=== PATIENT | female | born 1960 | race Caucasian/White ===

== ENCOUNTER 2018-03-22 15:08 | Emergency (ER) | payer MEDICARE, MEDICAID ==
[2018-03-22] MEDS ORDERED: Acetaminophen 500 MG TAB ONE (15:32)
--- NOTE | 2018-03-22 16:27 | RAD ---
ONE VIEW PELVIS: 03/22/18 HISTORY: Right knee replacement three weeks ago. Growing pain. COMPARISON: 06/14/15. FINDINGS: Bony pelvis is intact. Stable hyperdensity projecting over the right iliac wing. Uncomplicated left h ip prosthesis. The visualized right hip is unremarkable. IMPRESSION: Unremarkable one view pelvis. POS: [facility]
--- NOTE | 2018-03-22 16:28 | RAD ---
FOUR VIEWS RIGHT KNEE: 03/22/18 HISTORY: Recent arthroplasty. Pain. COMPARISON: 05/04/15. FINDINGS: Small suprapatellar joint effusion is suspected. Joint spaces are preserved. No perihardware lucency. No fracture. IMPRESSION: Small suprapatellar joint effusion. POS: [facility]
--- NOTE | 2018-03-22 17:19 | ULT ---
RIGHT LOWER EXTREMITY VENOUS ULTRASOUND WITH DOPPLER: 03/22/18 HISTORY: Right leg pain since recent knee replacement. COMPARISON: None. TECHNIQUE: Banda scale, color flow, doppler imaging with spectral waveform analysis performed in the right lower extremity venous system. FINDINGS: There is compressibility, presence of flow and augmentation in the common femoral vein, femoral vein, and popliteal vein. There is flow in the greater saphenous vein, profunda vein, and posterior tibial vein. IMPRESSION: No evidence of thrombus in the right lower extremity deep venous system. POS: [facility]
== END 2018-03-22 16:58 | disposition home or self-care (01) ==
LOC: ERS 15:08
DX: M25.561 Pain in right knee (principal); M25.551 Pain in right hip; K21.9 Gastro-esophageal reflux disease without esophagitis; I10 Essential (primary) hypertension; F31.9 Bipolar disorder, unspecified; F17.210 Nicotine dependence, cigarettes, uncomplicated; Z79.84 Long term (current) use of oral hypoglycemic drugs; Z79.899 Other long term (current) drug therapy
CPT/HCPCS: 72170

== ENCOUNTER 2018-06-05 12:20 | Outpatient (CLI) | payer MEDICARE, OTHER | END 2018-06-05 12:21 | disposition home or self-care (01) | LOC: BICMAMMO 12:20 | PROVIDERS: ATTEND Family Medicine | DX: Z12.31 Encounter for screening mammogram for malignant neoplasm of breast (principal); N64.89 Other specified disorders of breast; Z80.3 Family history of malignant neoplasm of breast | CPT/HCPCS: 77063; 77067 ==

== ENCOUNTER 2018-07-11 14:01 | Outpatient (CLI) | payer MEDICARE, OTHER ==
--- NOTE | 2018-07-11 15:35 | MMO ---
Left Breast MAMMO Unilat Diag DDI LT+EMILY. CLINICAL HISTORY: Patient is 58 years old and is seen for diagnostic exam. The patient has the following family history of breast cancer: maternal aunt and cousin gender unknown. The patient has no personal history of cancer. The patient has a history of right Excisional Biopsy in July, - benign. VIEWS: The views performed were: left craniocaudal spot compression with tomosynthesis and left mediolateral with tomosynthesis. FILMS COMPARED: The present examination has been compared to prior imaging studies performed at 09/08/2006, 11/15/2007, 11/17/2008, 03/11/2009, 07/16/2010, 07/23/2010, 07/29/2011, 10/10/2013 and 06/05/2018, and at [facility] on 03/30/2015. MAMMOGRAM FINDINGS: There are scattered fibroglandular densities. There is a focal asymmetry seen in the central region of the left breast. Tomosynthesis and spot compression images show the abnormality to represent superimpostion of normal breast parenchyma. There are no suspicious masses, calcifications or areas of architectural distortion. IMPRESSION: FOCAL ASYMMETRY IN THE LEFT BREAST IS BENIGN. A ROUTINE FOLLOW-UP MAMMOGRAM IN 1 YEAR IS RECOMMENDED. THE RESULTS OF THIS EXAM WERE SENT TO THE PATIENT. ACR BI-RADS Category 2 - Benign finding MAMMOGRAPHY NOTE: 1. A negative mammogram report should not delay a biopsy if a dominant of clinically suspicious mass is present. 2. Approximately 10% to 15% of breast cancers are not detected by mammography. 3. Adenosis and dense breasts may obscure an underlying neoplasm.
== END 2018-07-11 14:02 | disposition home or self-care (01) ==
LOC: BICMAMMO 14:01
PROVIDERS: ATTEND Family Medicine
DX: R92.2 Inconclusive mammogram (principal); N64.89 Other specified disorders of breast; Z80.3 Family history of malignant neoplasm of breast
CPT/HCPCS: 77065; G0279

== ENCOUNTER 2018-09-17 18:43 | Emergency (ER) | payer MEDICARE, OTHER ==
[2018-09-17] MEDS ORDERED: Cyclobenzaprine 10 MG TAB ONE (20:55)
== END 2018-09-17 20:58 | disposition home or self-care (01) ==
LOC: ERS 18:43
DX: M25.512 Pain in left shoulder (principal); K21.9 Gastro-esophageal reflux disease without esophagitis; I10 Essential (primary) hypertension; F31.9 Bipolar disorder, unspecified; E78.00 Pure hypercholesterolemia, unspecified; F17.210 Nicotine dependence, cigarettes, uncomplicated; Z79.891 Long term (current) use of opiate analgesic; Z79.899 Other long term (current) drug therapy; Z79.84 Long term (current) use of oral hypoglycemic drugs
CPT/HCPCS: 99283

== ENCOUNTER 2018-11-08 14:01 | Emergency (ER) | payer MEDICARE, OTHER ==
--- NOTE | 2018-11-08 16:38 | ULT ---
Venous duplex sonogram left lower extremity HISTORY: Left leg pain and edema. FINDINGS: The left common femoral vein and greater saphenous junction were evaluated along with the f emoral, deep femoral, popliteal, and posterior tibial veins. There is good color and spectral Doppler flow, compression, and augmentation. IMPRESSION: No sonographic evidence of DVT within the left lower extremity.
[2018-11-08] MEDS ORDERED: Acetaminophen/Codeine 30-300mg Tablet ONE (17:04)
== END 2018-11-08 17:12 | disposition home or self-care (01) ==
LOC: ERS 14:01
DX: M79.662 Pain in left lower leg (principal); I10 Essential (primary) hypertension; E78.00 Pure hypercholesterolemia, unspecified; K21.9 Gastro-esophageal reflux disease without esophagitis; F31.9 Bipolar disorder, unspecified; F17.210 Nicotine dependence, cigarettes, uncomplicated

== ENCOUNTER 2018-11-21 13:52 | Emergency (ER) | payer MEDICARE, OTHER ==
[2018-11-21] MEDS ORDERED: Ibuprofen 200 MG TAB ONE (14:28)
--- NOTE | 2018-11-21 15:18 | ULT ---
LEFT LOWER EXTREMITY VENOUS DUPLEX ULTRASOUND INCLUDING COLOR AND SPECTRAL DOPPLER IMAGING: HISTORY: Lower extremity pain and edema. COMPARISON: 11/08/2018. FINDINGS: Exam performed from groin to ankle including visualized greater saphenous, common femoral, superficia l femoral, profunda femoral, popliteal, trifurcation, and posterior tibial vein regions. Phasic flow noted at all levels with normal compressibility and normal augmentation. The patient did have some visible varicose veins, but no evidence for focal superficial thrombophlebitis was demonstrated. IMPRESSION: Unremarkable left lower extremity venous duplex ultrasound. No evidenc3 for deep vein thrombosis. POS: [facility]
== END 2018-11-21 15:15 | disposition home or self-care (01) ==
LOC: ERS 13:52
DX: G62.9 Polyneuropathy, unspecified (principal); K21.9 Gastro-esophageal reflux disease without esophagitis; F31.9 Bipolar disorder, unspecified; I10 Essential (primary) hypertension; E78.00 Pure hypercholesterolemia, unspecified; F17.210 Nicotine dependence, cigarettes, uncomplicated

== ENCOUNTER 2019-01-10 10:06 | Observation (INO) | payer MEDICARE, OTHER ==
[2019-01-10 10:40] LABS: #Basophils 0.1 thou/uL (0.0-0.2); #Eosinphils 0.1 thou/uL (0.0-0.7); #Lymphocytes 2.5 thou/uL (1.20-3.40); #Monocytes 0.4 thou/uL (0.11-0.59); #Neutrophils 4.2 thou/uL (1.40-6.50); %Basophils 0.9 % (0.0-1.0); %Eosinophils 1.3 % (0.0-10.0); %Lymphocytes 34.4 % (21.0-51.0); %Monocytes 5.7 % (0.0-10.0); %Neutrophils 57.8 % (42.0-75.0); Hemoglobin 13.9 g/dL (12.0-16.0); Mean Corpuscular HGB CONC 34.2 g/dL (32.0-36.0); Mean Corpuscular Hemoglobin 31.4 pg (27.0-31.0); Mean Corpuscular Volume 91.9 fL (78.0-98.0); Platelet Count 230 thou/uL (130-400); RBC Distribution Width 12.3 % (11.5-14.5); Red Blood Cell (RBC) Count 4.44 mill/uL (4.20-5.40); White Blood Cell (WBC) Count 7.2 thou/uL (4.8-10.8)
[2019-01-10 11:02] LABS: ALT (SGPT) 18 U/L (8-55); AST (SGOT) 25 U/L (5-34); Albumin 4.3 g/dL (3.5-5.0); Alkaline Phosphatase 65 U/L (40-150); Anion Gap 15 mmol/L (10-20); BUN (Urea Nitrogen) 9 mg/dL (9.8-20.1); Bilirubin, Total 0.4 mg/dL (0.2-1.2); CK (CPK) 93 U/L (29-168); Calc. Creatinine Clearance 0 mL/min (70-130); Calcium 9.7 mg/dL (7.8-10.44); Carbon Dioxide 21 mmol/L (22-29); Chloride 109 mmol/L (98-107); Estimated GFR-MDRD 75; Globulin 2.9 g/dL (2.4-3.5); Glucose 115 mg/dL (70-105); Potassium 4.4 mmol/L (3.5-5.1); Protein, Total 7.2 g/dL (6.0-8.3); Sodium 141 mmol/L (136-145)
[2019-01-10] MEDS ORDERED: Promethazine HCl 25 MG/ML VIAL ONE (11:02)
[2019-01-10] MEDS ORDERED: Aspirin Chewable 81 MG TAB ONE (11:02)
[2019-01-10] MEDS ORDERED: Nitroglycerin 0.4 MG TAB 1 EACH ONE (11:02)
--- NOTE | 2019-01-10 11:18 | RAD ---
PORTABLE CHEST: HISTORY: Chest pain. COMPARISON: 11/02/2016 study. FINDINGS: Heart size is enlarged. Mediastinal structures appear unremarkable. The lungs are clear of infiltra zohreh. There are no signs of failure. IMPRESSION: Cardiomegaly. POS: [facility]
[2019-01-10] MEDS ORDERED: Senokot S 8.6-50 MG TAB PO PRN (12:35)
[2019-01-10 13:12] LABS: Cardiac Risk 3.5 (Less than 4.5)
[2019-01-10 13:48] VITALS: BMI 29.0
--- NOTE | 2019-01-10 14:02 | HP ---
PRIMARY CARE PHYSICIAN: Santosh. CHIEF COMPLAINT: Chest pain. HISTORY OF PRESENT ILLNESS: Ms. Stanton is a 58-year-old female with complaints of midsternal chest pain x2 days. Reports pain radiates to right arm. Reports nausea. Denies vomiting. Denies diaphoresis. Denies shortness of breath. Denies any history of any cardiac disease in the past. Does report that she has been complaining about chest pain over the last several days. Reports that she went to her PCP and had an echocardiogram done two days ago, but has not gotten the results for them yet. Past medical history pertinent for hypertension, hyperlipidemia, and GERD. Does smoke. Also has a history of bipolar and depression. She was evaluated in the ER. First troponin was undetectable. EKG shows normal sinus rhythm, beats per minute 83, ST-T waves are normal. Lab values mostly unremarkable. Chloride 109, carbon dioxide 21, and BUN 9. The patient is complaining that she feels like her heart is moving out of her chest and then it has been hurting on and off for quite some time, but worse in the last 2 days. The patient admitted to the observation unit for further risk stratification. PAST MEDICAL HISTORY: Hypertension, hyperlipidemia, and GERD. PAST SURGICAL HISTORY: Multiple surgeries to the right knee, left hip replacement, three bladder surgeries, surgery to remove some ovarian cysts, cholecystectomy, hysterectomy, and six surgeries for bowel adhesions obstruction. PSYCH HISTORY: Positive for bipolar and depression. SOCIAL HISTORY: Lives at home with family. Denies any drug use or any alcohol use. She is a smoker, smokes half a pack a day. FAMILY HISTORY: Positive for coronary artery disease. REVIEW OF SYSTEMS: The patient reports chest pain, with chest pain radiation to the right arm. Reports palpitations. Reports to the ER, some shortness of breath. She denied that to me. Denies any abdominal pain or dysuria. She has chills, but no fever. All other systems are reviewed and are negative unless mentioned in the HPI. PHYSICAL EXAMINATION: VITAL SIGNS: Blood pressure 146/98, pulse is 71, respirations are 19, temperature is 98.1, and pO2 saturations are 98% on room air. CONSTITUTIONAL: The patient appears uncomfortable. She is alert and oriented to person, place and time. HEENT: Head is atraumatic and normocephalic. Eyes, pupils are equal, round, and reactive to light. Extraocular muscles are intact. ENT, mouth exam is normal. Mucous membranes are moist. NECK: Normal range of motion. No tenderness. RESPIRATORY: Chest movement is symmetrical. There is mild tenderness to the right anterior chest. Palpation of chest reproduces symptoms. Tenderness noted to palpation to right upper breast. CARDIOVASCULAR: Regular heart rate and rhythm. Heart sounds are normal. ABDOMEN: Nontender. Bowel sounds are heard. BACK: Normal range of motion. Normal inspection. No tenderness. EXTREMITIES: Upper extremity, normal inspection. Normal range of motion. Motor strength is normal. Sensation intact. Radial pulses are normal. Lower extremity, normal range of motion. Motor strength is normal. Sensation intact. Pedal pulses are normal. There is no edema. NEURO: The patient is alert and oriented to person, place, and time. Speech is normal. SKIN: Warm and dry. Normal in color. ALLERGIES: TYLENOL, STADOL, KEFLEX, CODEINE, BENADRYL, VISTARIL, TORADOL, ZOFRAN, COMPAZINE, DARVOCET, AND TRAMADOL. HOME MEDICATIONS: Per the ER, which will need to be verified; 1. Pravastatin 20 mg p.o. once a day. 2. Prilosec 40 mg p.o. b.i.d. 3. Wellbutrin 150 mg two tablets once a day. 4. Flexeril 10 mg p.o. q.8 hours p.r.n. 5. Motrin 600 mg one tablet q.6 to 8 hours as needed for pain. ASSESSMENT AND PLAN: 1. Chest pain. EKG within normal limits. First troponin undetectable. The pain is reproducible on palpation, which makes it less likely that is cardiac. However, the patient has multiple risk factors and has not had a stress test that she can remember, so we will go ahead and order this. 2. We will check lipids, TSH, urine, and urine drug screen. Aspirin has been given in the ER. We will continue daily. 3. History of hyperlipidemia. We will continue home medications. 4. Gastroesophageal reflux disease. We will continue home medications. 5. Bipolar depression. We will continue home medications. 6. Case discussed with Dr. Guillen, who agrees. 7. Deep venous thrombosis and gastrointestinal prophylaxis have been started. 8. Hospital course depending on clinical findings. Job ID: [id number]
[2019-01-10 14:32] LABS: Bilirubin Negative (Negative); Blood, Urine Negative (Negative); Clarity Clear (Clear); Glucose, Urine (Dipstick) Normal (Negative); Leukocyte Negative Leu/uL (Negative); Nitrite Negative (Negative); Protein, Urine (Dipstick) Negative (Neg-Trace); RBC/HPF 0-3 HPF (0-3); Squamous Epithelial 0-3 HPF (0-3); Urobilinogen Normal mg/dL (Less than 2); WBC/HPF 0-3 HPF (0-3)
[2019-01-10 14:34] LABS: Bacteria/HPF 1+ HPF (None Seen); Urine Culture Reflex No No
[2019-01-10 14:41] LABS: Amphetamine Not Detected (NotDetected); Barbiturates Screen Not Detected (NotDetected); Benzodiazepine Screen Not Detected (NotDetected); Cocaine Metabolite Screen Not Detected (NotDetected); Medtox Reader # READER 4; Methadone Not Detected (NotDetected); Methamphetamine Not Detected (NotDetected); Opiate Screen Not Detected (NotDetected); Oxycodone Screen Not Detected (NotDetected); Phencyclidine (PCP) Not Detected (NotDetected); THC/Cannabinoid Screen Not Detected (NotDetected); Tricyclic Screen Not Detected (NotDetected)
[2019-01-10 14:42] LABS: Medtox Control Line Valid? VALID (VALID)
[2019-01-10] MEDS: Nitroglycerin 0.4 MG TAB (25 Tab Bottle) SL PRN ×2 (16:58→17:09)
[2019-01-10 17:13] LABS: Troponin I Less than 0.010 ng/mL (< 0.028)
[2019-01-10] MEDS ORDERED: Acetaminophen 325 MG TAB PO PRN (17:48)
[2019-01-10] MEDS ORDERED: Melatonin 3 MG TAB PO PRN (19:37)
[2019-01-10] MEDS: Famotidine 20 MG TAB PO SCH (20:00)
[2019-01-10] MEDS: Ibuprofen 600 MG TAB PO PRN (20:00)
[2019-01-10] MEDS: Cyclobenzaprine 10 MG TAB PO PRN (20:01)
[2019-01-10 20:27] LABS: Troponin I Less than 0.010 ng/mL (< 0.028)
[2019-01-10] MEDS ORDERED: Pravastatin Sodium 20 MG TAB PO SCH (21:00)
[2019-01-11] MEDS: Ibuprofen 600 MG TAB PO PRN (04:48)
[2019-01-11] MEDS: Cyclobenzaprine 10 MG TAB PO PRN (04:48)
[2019-01-11 05:30] LABS: #Eosinphils 0.1 thou/uL (0.0-0.7); #Lymphocytes 2.7 thou/uL (1.20-3.40); #Monocytes 0.4 thou/uL (0.11-0.59); #Neutrophils 3.1 thou/uL (1.40-6.50); %Basophils 0.6 % (0.0-1.0); %Eosinophils 1.5 % (0.0-10.0); %Lymphocytes 42.1 % (21.0-51.0); %Monocytes 6.9 % (0.0-10.0); %Neutrophils 48.8 % (42.0-75.0); Hemoglobin 13.4 g/dL (12.0-16.0); Mean Corpuscular Volume 91.4 fL (78.0-98.0); Platelet Count 220 thou/uL (130-400); RBC Distribution Width 12.1 % (11.5-14.5); Red Blood Cell (RBC) Count 4.19 mill/uL (4.20-5.40); White Blood Cell (WBC) Count 6.4 thou/uL (4.8-10.8)
[2019-01-11 05:44] LABS: Anion Gap 12 mmol/L (10-20); BUN (Urea Nitrogen) 12 mg/dL (9.8-20.1); Calc. Creatinine Clearance 100 mL/min (70-130); Calcium 9.5 mg/dL (7.8-10.44); Carbon Dioxide 24 mmol/L (22-29); Chloride 108 mmol/L (98-107); Estimated GFR-MDRD 81; Glucose 101 mg/dL (70-105); Potassium 3.7 mmol/L (3.5-5.1); Sodium 140 mmol/L (136-145)
[2019-01-11] MEDS ORDERED: Citalopram 20 MG TAB PO SCH (09:00)
[2019-01-11] MEDS ORDERED: Lisinopril/Hydrochlorothiazide 10 mg/12.5 mg Tablet PO SCH (09:00)
[2019-01-11] MEDS ORDERED: Bupropion 150 MG XL TAB PO SCH (09:00)
[2019-01-11] MEDS ORDERED: Enoxaparin Sodium 40 MG/0.4 ML SYRINGE SC SCH (09:00)
[2019-01-11] MEDS: Famotidine 20 MG TAB PO SCH (09:27)
[2019-01-11 12:15] VITALS: BP 137/70; TEMP 97.6
--- NOTE | 2019-01-11 13:05 | NM ---
NM Cardiac Stress W EF WF History: Chest pain Comparison: Nuclear medicine cardiac stress test and ejection fraction 2011 Findings: Stress and rest performed after the intravenous administration of 27.3 and 31.3 mCi technet ium 99m sestamibi, respectively. Adequate left ventricular uptake of radiotracer. No scar or ischemia. Normal wall motion. Calculated ejection fraction of 65%. Impression: Normal nuclear medicine cardiac stress test and ejection fraction.
--- NOTE | 2019-01-11 16:49 | EKG ---
Test Reason : Blood Pressure : / mmHG Vent. Rate : 078 BPM Atrial Rate : 078 BPM P-R Int : 142 ms QRS Dur : 088 ms QT Int : 376 ms P-R-T Axes : 053 072 054 degrees QTc Int : 428 ms Normal sinus rhythm Normal ECG When compared with ECG of 10-JAN-2019 10:15, (Unconfirmed) No significant change was found Confirmed by DR. Sridevi AKERS ([id number]) on 01/11/2019 4:49:28 PM Referred By: Confirmed By:DR. Sridevi AKERS
[2019-01-11] MEDS ORDERED: ADENOSINE 60 MG/20 ML VIAL ONE (16:54)
--- NOTE | 2019-01-11 19:17 | DIS ---
DATE OF ADMISSION: 01/10/2019 DATE OF DISCHARGE: 01/11/2019 DISCHARGE DISPOSITION: Home. FOLLOWUP: Follow up with [facility] in 1 week. The patient was seen and examined on the day of discharge. Denies any new complaints. No chest pain, shortness of breath, or palpitations reported. BRIEF HOSPITAL COURSE: The patient is a 58-year-old female with hypertension, hyperlipidemia, and GERD, presented to the hospital with chest discomfort. Please refer to the history and physical for further details. The patient was admitted to the hospital with a diagnosis of chest discomfort, rule out acute coronary syndrome. Serial troponins remain negative. She underwent a Cardiolite stress test that was negative for reversible ischemia. Ejection fraction was 65% without any wall motion abnormality. She is chest pain free at this time. She was advised to follow up with primary care physician in 1 week. SIGNIFICANT LABORATORY DATA: Fasting lipid profile showed cholesterol 209, LDL 123, HDL 60, triglyceride 132. TSH 1.1. Troponin was negative. BNP was 16.1. Creatinine 0.74 with BUN 12. Hemoglobin 13.4 with hematocrit 38.3. Urine drug screen was negative. FINAL DIAGNOSES: 1. Chest discomfort, acute coronary syndrome ruled out. 2. Negative Cardiolite stress test. 3. Hyperlipidemia. 4. Gastroesophageal reflux disease. 5. Hypertension. 6. Anxiety. 7. Depression, mild, stable. 8. Chronic kidney disease, stage 2. PLAN: Plan of care was discussed with the patient in detail. She stated understanding. Job ID: [id number]
== END 2019-01-11 15:12 | disposition home or self-care (01) ==
LOC: ERS 10:06 → 2SW 13:38
PROVIDERS: ADMIT Internal Medicine; ATTEND Internal Medicine
DX: R07.89 Other chest pain (principal); E78.5 Hyperlipidemia, unspecified; K21.9 Gastro-esophageal reflux disease without esophagitis; F31.9 Bipolar disorder, unspecified; F17.210 Nicotine dependence, cigarettes, uncomplicated; F41.9 Anxiety disorder, unspecified; I12.9 Hypertensive chronic kidney disease with stage 1 through stage 4 chronic kidney disease, or unspecified chronic kidney disease; N18.9 Chronic kidney disease, unspecified; Z79.84 Long term (current) use of oral hypoglycemic drugs; Z79.899 Other long term (current) drug therapy; Z88.1 Allergy status to other antibiotic agents; Z88.5 Allergy status to narcotic agent; Z88.8 Allergy status to other drugs, medicaments and biological substances
CPT/HCPCS: 71045; 78452; 80048; 80061; 80306; 81001; 82550; 83880; 84484 ×2; 85025; 93005; 93017; 96365; 99285; A9500; 36415; 80053; 84443; 93010; G0378; J0153; J1650; J2550

== ENCOUNTER 2021-02-08 14:39 | Inpatient (IN) | payer MEDICARE, MEDICAID ==
[2021-02-08 15:28] LABS: #Eosinphils 0.1 thou/uL (0.0-0.7); #Lymphocytes 2.9 thou/uL (1.20-3.40); #Monocytes 0.5 thou/uL (0.11-0.59); #Neutrophils 4.5 thou/uL (1.40-6.50); %Basophils 0.5 % (0.0-1.0); %Eosinophils 1.5 % (0.0-10.0); %Lymphocytes 36.1 % (21.0-51.0); %Neutrophils 55.9 % (42.0-75.0); Hemoglobin 14.4 g/dL (12.0-16.0); Mean Corpuscular HGB CONC 34.9 g/dL (32.0-36.0); Mean Corpuscular Hemoglobin 31.7 pg (27.0-31.0); Mean Platelet Volume 7.8 fL (7.4-10.4); Platelet Count 258 thou/uL (130-400); RBC Distribution Width 12.3 % (11.5-14.5); Red Blood Cell (RBC) Count 4.52 mill/uL (4.20-5.40); White Blood Cell (WBC) Count 8.1 thou/uL (4.8-10.8)
[2021-02-08] MEDS ORDERED: Nitroglycerin 0.4 MG TAB 1 EACH ONE (15:39)
[2021-02-08] MEDS ORDERED: Aspirin Chewable 81 MG TAB ONE (15:39)
[2021-02-08 15:48] LABS: ALT (SGPT) 30 U/L (8-55); AST (SGOT) 27 U/L (5-34); Alkaline Phosphatase 79 U/L (40-110); Anion Gap 16 mmol/L (10-20); BUN (Urea Nitrogen) 8 mg/dL (9.8-20.1); Bilirubin, Total 0.4 mg/dL (0.2-1.2); Calc. Creatinine Clearance 0 mL/min (70-130); Calcium 9.2 mg/dL (7.8-10.44); Carbon Dioxide 18 mmol/L (22-29); Chloride 108 mmol/L (98-107); Globulin 3.2 g/dL (2.4-3.5); Glucose 210 mg/dL (70-105); Potassium 3.9 mmol/L (3.5-5.1); Protein, Total 7.2 g/dL (6.0-8.3); Sodium 138 mmol/L (136-145)
[2021-02-08] MEDS ORDERED: Insulin Regular 300 UNITS/3 ML VIAL SC PRN (18:52)
[2021-02-08] MEDS ORDERED: Dextrose 50% Abboject 50 ML SYRINGE SLOW IVP PRN (18:52)
[2021-02-08] MEDS ORDERED: Dextrose 5% in Water 1,000 ML IV PRN (18:52)
[2021-02-08] MEDS ORDERED: Acetaminophen 650 MG Suppository PR PRN (18:53)
[2021-02-08] MEDS ORDERED: Senokot S 8.6-50 MG TAB PO PRN (18:53)
[2021-02-08] MEDS ORDERED: Acetaminophen 325 MG TAB PO PRN (18:53)
[2021-02-08] MEDS ORDERED: Ondansetron PF 4 MG/2 ML Vial IVP PRN (18:53)
[2021-02-08] MEDS ORDERED: Ondansetron ODT 4 MG TAB PO PRN (18:53)
[2021-02-08] MEDS ORDERED: Nicotine 14 MG PATCH TD PRN (18:53)
[2021-02-08] MEDS ORDERED: Albuterol Sulfate 2.5 mg/3 ml Neb NEB PRN (19:23)
[2021-02-08] MEDS ORDERED: Nitroglycerin 0.4 MG TAB (25 Tab Bottle) SL PRN (19:33)
[2021-02-08 19:44] LABS: Hemoglobin A1c 7.3 % (4.0-6.0)
[2021-02-08 19:47] LABS: Magnesium 1.7 mg/dL (1.6-2.6)
[2021-02-08 19:49] LABS: PTT 30.1 sec (22.9-36.1)
[2021-02-08 19:50] LABS: D-Dimer Test 0.39 *mcg/mL (0.27-0.43)
[2021-02-08 19:52] LABS: Troponin I 0.017 ng/mL (< 0.028)
[2021-02-08] MEDS ORDERED: Morphine 4 MG/ML VIAL SLOW IVP SCH (20:15)
[2021-02-08 20:57] VITALS: BMI 31.8
[2021-02-08] MEDS ORDERED: FLU VACC QS2021-22(6MOS UP)/PF 60 MCG/0.5 ML SYRINGE IM ONE (21:30)
[2021-02-08 22:37] LABS: Troponin I 0.019 ng/mL (< 0.028)
[2021-02-08 22:58] LABS: Amphetamine Not Detected (NotDetected); Barbiturates Screen Not Detected (NotDetected); Benzodiazepine Screen Detected (NotDetected); Cocaine Metabolite Screen Not Detected (NotDetected); Methadone Not Detected (NotDetected); Methamphetamine Not Detected (NotDetected); Opiate Screen Detected (NotDetected); Oxycodone Screen Not Detected (NotDetected); Phencyclidine (PCP) Not Detected (NotDetected); THC/Cannabinoid Screen Not Detected (NotDetected); Tricyclic Screen Detected (NotDetected)
[2021-02-09 01:55] LABS: Troponin I Less than 0.010 ng/mL (< 0.028)
[2021-02-09 06:11] LABS: #Basophils 0.1 thou/uL (0.0-0.2); #Eosinphils 0.1 thou/uL (0.0-0.7); #Lymphocytes 2.9 thou/uL (1.20-3.40); #Monocytes 0.5 thou/uL (0.11-0.59); #Neutrophils 3.2 thou/uL (1.40-6.50); %Basophils 0.8 % (0.0-1.0); %Eosinophils 1.7 % (0.0-10.0); %Monocytes 7.5 % (0.0-10.0); Hemoglobin 13.2 g/dL (12.0-16.0); Mean Corpuscular HGB CONC 35.6 g/dL (32.0-36.0); Mean Corpuscular Hemoglobin 32.2 pg (27.0-31.0); Mean Corpuscular Volume 90.6 fL (78.0-98.0); Mean Platelet Volume 7.6 fL (7.4-10.4); Platelet Count 224 thou/uL (130-400); RBC Distribution Width 12.3 % (11.5-14.5); White Blood Cell (WBC) Count 6.7 thou/uL (4.8-10.8)
[2021-02-09 06:39] LABS: Anion Gap 13 mmol/L (10-20); BUN (Urea Nitrogen) 11 mg/dL (9.8-20.1); Calc. Creatinine Clearance 110 mL/min (70-130); Calcium 9.3 mg/dL (7.8-10.44); Carbon Dioxide 20 mmol/L (22-29); Cardiac Risk 5.3 (Less than 4.5); Chloride 109 mmol/L (98-107); Cholesterol 184 mg/dl (< 200 Desired); Glucose 150 mg/dL (70-105); HDL Cholesterol 35 mg/dL (>60 Neg Risk); LDL Cholesterol, Calculated 111 mg/dL; Potassium 3.6 mmol/L (3.5-5.1); Sodium 138 mmol/L (136-145); Triglycerides 192 mg/dL (Less than 150)
[2021-02-09] MEDS ORDERED: ADENOSINE 60 MG/20 ML VIAL ONE (10:32)
[2021-02-09] MEDS: Aspirin 81 mg Enteric Coated Tablet PO SCH (12:37)
[2021-02-09 14:52] LABS: SARS-CoV-2 PCR by NAA Not Detected (NotDetected)
[2021-02-09] MEDS ORDERED: Lidocaine 5% Patch TD SCH (16:00)
[2021-02-09] MEDS ORDERED: Gabapentin 100 MG CAP PO SCH ×2 (17:15→21:00)
[2021-02-09] MEDS ORDERED: methylPREDNISolone Sod Succ 40 MG VIAL IVP SCH (19:30)
[2021-02-09] MEDS: Cyclobenzaprine 10 MG TAB PO PRN (20:36)
[2021-02-09 20:41] LABS: Troponin I Less than 0.010 ng/mL (< 0.028)
[2021-02-09] MEDS ORDERED: Transdermal Patch Removal TOP SCH (21:00)
[2021-02-09] MEDS ORDERED: Lidocaine 2% Viscous Solution 10 ML, Aluminum & Magnesium Hydroxide 30 ML SSW SCH (22:15)
[2021-02-10] MEDS ORDERED: Gabapentin 100 MG CAP PO SCH (01:00)
[2021-02-10] MEDS ORDERED: Lidocaine 5% Patch TD SCH ×2 (04:00→09:00)
[2021-02-10] MEDS: HumaLOG 300 UNITS/3 ML VIAL SC PRN ×2 (06:50→11:32)
[2021-02-10] MEDS ORDERED: HumaLOG 300 UNITS/3 ML VIAL SC PRN (07:30)
[2021-02-10] MEDS: Transdermal Patch Removal TOP SCH (07:47)
[2021-02-10] MEDS: Aspirin 81 mg Enteric Coated Tablet PO SCH (09:07)
[2021-02-10] MEDS: Metoprolol Tartrate 50 MG TAB PO SCH ×2 (09:07→20:38)
[2021-02-10] MEDS: Gabapentin 100 MG CAP PO SCH ×2 (09:08→20:37)
[2021-02-10] MEDS: Cyclobenzaprine 10 MG TAB PO PRN (13:33)
[2021-02-10] MEDS: Lidocaine 5% Patch TD SCH (15:27)
[2021-02-10] MEDS: Insulin Regular 300 UNITS/3 ML VIAL SC PRN (17:35)
[2021-02-10] MEDS: Icosapent Ethyl 1 GM CAPSULE PO SCH (17:37)
[2021-02-10] MEDS: Atorvastatin Calcium 40 MG TAB PO SCH (20:38)
[2021-02-11] MEDS: Transdermal Patch Removal TOP SCH (04:31)
[2021-02-11 05:24] LABS: Glucose POC Confirmation 245 mg/dl (70-105)
[2021-02-11] MEDS: Insulin Regular 300 UNITS/3 ML VIAL SC PRN ×2 (06:22→12:01)
[2021-02-11] MEDS ORDERED: tiZANidine HCl 4 MG TAB PO SCH (07:45)
[2021-02-11] MEDS ORDERED: traMADol HCl 50 MG TAB PO PRN (09:44)
[2021-02-11] MEDS: Icosapent Ethyl 1 GM CAPSULE PO SCH ×2 (10:43→16:32)
[2021-02-11] MEDS: Gabapentin 100 MG CAP PO SCH ×2 (10:43→20:04)
[2021-02-11] MEDS: Metoprolol Tartrate 50 MG TAB PO SCH ×2 (10:44→20:04)
[2021-02-11] MEDS: Aspirin 81 mg Enteric Coated Tablet PO SCH (10:44)
[2021-02-11] MEDS: Cyclobenzaprine 10 MG TAB PO PRN ×2 (12:00→20:04)
[2021-02-11] MEDS ORDERED: methylPREDNISolone 4 mg Tablet PO SCH (16:00)
[2021-02-11] MEDS ORDERED: metFORMIN 500 MG TAB PO SCH (16:15)
[2021-02-11] MEDS: Lidocaine 5% Patch TD SCH (16:31)
[2021-02-11] MEDS: Atorvastatin Calcium 40 MG TAB PO SCH (20:04)
[2021-02-12] MEDS: Transdermal Patch Removal TOP SCH (05:00)
[2021-02-12] MEDS: Insulin Regular 300 UNITS/3 ML VIAL SC PRN (05:54)
[2021-02-12 07:51] VITALS: TEMP 97.8
[2021-02-12] MEDS ORDERED: metFORMIN 500 MG TAB PO SCH (08:00)
[2021-02-12] MEDS ORDERED: methylPREDNISolone 4 mg Tablet PO SCH (09:00)
[2021-02-12 09:02] VITALS: BP 121/81
[2021-02-12] MEDS: Aspirin 81 mg Enteric Coated Tablet PO SCH (09:41)
[2021-02-12] MEDS: Gabapentin 100 MG CAP PO SCH (09:42)
[2021-02-12] MEDS: Metoprolol Tartrate 50 MG TAB PO SCH (09:42)
[2021-02-12] MEDS: Icosapent Ethyl 1 GM CAPSULE PO SCH (09:45)
== END 2021-02-12 11:15 | disposition home or self-care (01) | DRG 74 ==
LOC: ERS 14:39 → 3SE 18:40 → OBSVTOIN 18:40
PROVIDERS: ADMIT Internal Medicine; ATTEND Internal Medicine
DX: M54.12 Radiculopathy, cervical region (principal); R07.89 Other chest pain; Z20.822 Contact with and (suspected) exposure to COVID-19; I10 Essential (primary) hypertension; E78.5 Hyperlipidemia, unspecified; K21.9 Gastro-esophageal reflux disease without esophagitis; Z96.642 Presence of left artificial hip joint; Z96.652 Presence of left artificial knee joint; F31.9 Bipolar disorder, unspecified; F17.210 Nicotine dependence, cigarettes, uncomplicated; M19.09 Primary osteoarthritis, other specified site; M48.02 Spinal stenosis, cervical region; F41.9 Anxiety disorder, unspecified; E11.65 Type 2 diabetes mellitus with hyperglycemia; E11.51 Type 2 diabetes mellitus with diabetic peripheral angiopathy without gangrene; Z90.49 Acquired absence of other specified parts of digestive tract; Z90.710 Acquired absence of both cervix and uterus; Z88.5 Allergy status to narcotic agent; Z88.8 Allergy status to other drugs, medicaments and biological substances; Z79.84 Long term (current) use of oral hypoglycemic drugs; Z79.82 Long term (current) use of aspirin; Z79.51 Long term (current) use of inhaled steroids; Z79.899 Other long term (current) drug therapy; Z83.3 Family history of diabetes mellitus; Z84.1 Family history of disorders of kidney and ureter; Z82.49 Family history of ischemic heart disease and other diseases of the circulatory system; Z80.1 Family history of malignant neoplasm of trachea, bronchus and lung; Z71.6 Tobacco abuse counseling
CPT/HCPCS: 36415; 36416; 71045; 72141; 78452; 80048; 80053; 80061; 80306; 82947; 83036; 83735; 83880; 84484; 85025; 85379; 85610; 85730; 93005; 93010; 93017; A9500; J0153; J1815; J2270; J2920; J7509; U0003; U0005

== ENCOUNTER 2021-05-26 16:43 | Observation (INO) | payer MEDICARE, OTHER ==
[2021-05-26] MEDS ORDERED: Dextrose 5% in Water 1,000 ML IV PRN (17:53)
[2021-05-26] MEDS ORDERED: Dextrose 50% Abboject 50 ML SYRINGE SLOW IVP PRN (17:53)
[2021-05-26] MEDS ORDERED: HumaLOG 300 UNITS/3 ML VIAL SC PRN ×2 (17:53)
[2021-05-26] MEDS ORDERED: Ondansetron ODT 4 MG TAB PO PRN (17:57)
[2021-05-26] MEDS ORDERED: Senokot S 8.6-50 MG TAB PO PRN (17:57)
[2021-05-26 18:12] VITALS: BMI 31.0
[2021-05-26] MEDS ORDERED: Communication Order-Pharmacy FS SCH (18:15)
[2021-05-26] MEDS: Sodium Chloride 0.9% 1,000 ML IV SCH (18:56)
[2021-05-26 19:15] LABS: #Basophils 0.1 thou/uL (0.0-0.2); #Eosinphils 0.1 thou/uL (0.0-0.7); #Lymphocytes 3.2 thou/uL (1.20-3.40); #Monocytes 0.5 thou/uL (0.11-0.59); #Neutrophils 4.6 thou/uL (1.40-6.50); %Basophils 0.9 % (0.0-1.0); %Eosinophils 0.8 % (0.0-10.0); %Lymphocytes 37.8 % (21.0-51.0); %Monocytes 6.1 % (0.0-10.0); %Neutrophils 54.3 % (42.0-75.0); Hemoglobin 15.1 g/dL (12.0-16.0); Mean Corpuscular Volume 91.3 fL (78.0-98.0); Mean Platelet Volume 7.6 fL (7.4-10.4); Platelet Count 269 thou/uL (130-400); RBC Distribution Width 11.6 % (11.5-14.5); Red Blood Cell (RBC) Count 4.88 mill/uL (4.20-5.40); White Blood Cell (WBC) Count 8.5 thou/uL (4.8-10.8)
[2021-05-26 19:23] LABS: SARS-CoV-2 NAA Rapid Test Not Detected (NotDetected)
[2021-05-26 19:36] LABS: Anion Gap 17 mmol/L (10-20); BUN (Urea Nitrogen) 12 mg/dL (9.8-20.1); Calc. Creatinine Clearance 88 mL/min (70-130); Calcium 9.8 mg/dL (7.8-10.44); Carbon Dioxide 21 mmol/L (22-29); Chloride 105 mmol/L (98-107); Glucose 171 mg/dL (70-105); Magnesium 1.8 mg/dL (1.6-2.6); Potassium 3.7 mmol/L (3.5-5.1); Sodium 139 mmol/L (136-145)
[2021-05-26 19:40] LABS: Troponin I Less than 0.010 ng/mL (< 0.028)
[2021-05-26] MEDS ORDERED: Nitroglycerin 0.4 MG TAB (25 Tab Bottle) SL PRN (21:03)
[2021-05-26] MEDS: Morphine 4 MG/ML VIAL SLOW IVP PRN (21:15)
[2021-05-26] MEDS ORDERED: Nitroglycerin 2% Ointment 1 INCH/1 GM Packet TOP SCH (21:15)
[2021-05-26] MEDS ORDERED: Aspirin 325 MG TAB PO SCH (21:15)
[2021-05-26] MEDS ORDERED: ALPRAZolam 1 MG TAB PO PRN (21:27)
[2021-05-26] MEDS ORDERED: Cyclobenzaprine 10 MG TAB PO PRN (21:27)
[2021-05-26] MEDS ORDERED: Atorvastatin Calcium 40 MG TAB PO ONE (21:32)
[2021-05-26 21:34] LABS: Troponin I Less than 0.010 ng/mL (< 0.028)
[2021-05-26] MEDS ORDERED: Atorvastatin Calcium 40 MG TAB PO SCH (21:45)
[2021-05-26 22:01] LABS: Bilirubin Negative (Negative); Blood, Urine Negative (Negative); Clarity Turbid (Clear); Glucose, Urine (Dipstick) Normal (Negative); Ketone, Urine Negative (Negative); Leukocyte Negative Leu/uL (Negative); Mucous/LPF Rare LPF (<2+); Nitrite Negative (Negative); Protein, Urine (Dipstick) 10 mg/dL (Neg-Trace); RBC/HPF 0-3 HPF (0-3); Specific Gravity, Urine 1.027 (1.002-1.036); Urobilinogen Normal mg/dL (Less than 2); WBC/HPF 0-3 HPF (0-3)
[2021-05-26 22:13] LABS: Bacteria/HPF 3+ HPF (None Seen)
[2021-05-26 22:15] LABS: Urine Culture Reflex No No
[2021-05-27 02:25] LABS: Troponin I Less than 0.010 ng/mL (< 0.028)
[2021-05-27 05:26] LABS: #Basophils 0.1 thou/uL (0.0-0.2); #Eosinphils 0.1 thou/uL (0.0-0.7); #Lymphocytes 3.2 thou/uL (1.20-3.40); #Monocytes 0.5 thou/uL (0.11-0.59); #Neutrophils 3.2 thou/uL (1.40-6.50); %Basophils 0.9 % (0.0-1.0); %Eosinophils 1.3 % (0.0-10.0); %Lymphocytes 45.4 % (21.0-51.0); %Neutrophils 45.5 % (42.0-75.0); Hemoglobin 12.9 g/dL (12.0-16.0); Mean Corpuscular HGB CONC 34.2 g/dL (32.0-36.0); Mean Corpuscular Hemoglobin 31.2 pg (27.0-31.0); Mean Corpuscular Volume 91.3 fL (78.0-98.0); Mean Platelet Volume 7.4 fL (7.4-10.4); Platelet Count 227 thou/uL (130-400); RBC Distribution Width 11.5 % (11.5-14.5); Red Blood Cell (RBC) Count 4.14 mill/uL (4.20-5.40); White Blood Cell (WBC) Count 7.1 thou/uL (4.8-10.8)
[2021-05-27 05:47] LABS: ALT (SGPT) 22 U/L (8-55); AST (SGOT) 20 U/L (5-34); Albumin 3.5 g/dL (3.5-5.0); Alkaline Phosphatase 71 U/L (40-110); Anion Gap 13 mmol/L (10-20); BUN (Urea Nitrogen) 12 mg/dL (9.8-20.1); Bilirubin, Total 0.5 mg/dL (0.2-1.2); Calc. Creatinine Clearance 104 mL/min (70-130); Calcium 9.1 mg/dL (7.8-10.44); Carbon Dioxide 21 mmol/L (22-29); Chloride 107 mmol/L (98-107); Globulin 2.9 g/dL (2.4-3.5); Glucose 183 mg/dL (70-105); Potassium 3.6 mmol/L (3.5-5.1); Protein, Total 6.4 g/dL (6.0-8.3); Sodium 137 mmol/L (136-145)
[2021-05-27] MEDS ORDERED: Midazolam HCl 2 mg/2 ml Vial ONE (08:10)
[2021-05-27] MEDS ORDERED: Sodium Chloride 0.9% 200 ML IV PRN (08:31)
[2021-05-27] MEDS ORDERED: Iopamidol 370 76% 100 ML VIAL ONE (08:53)
[2021-05-27] MEDS ORDERED: METHYLPREDNISOLONE 4 MG PO SCH (09:00)
[2021-05-27] MEDS: lamoTRIgine 100 MG TAB PO SCH (09:26)
[2021-05-27] MEDS: Aspirin 81 mg Enteric Coated Tablet PO SCH (09:26)
[2021-05-27] MEDS: Citalopram 20 MG TAB PO SCH (09:26)
[2021-05-27] MEDS: Bupropion 150 MG XL TAB PO SCH (09:26)
[2021-05-27] MEDS: Metoprolol Tartrate 50 MG TAB PO SCH ×2 (09:26→21:22)
[2021-05-27] MEDS: Gabapentin 400 MG CAP PO SCH ×3 (09:27→21:22)
[2021-05-27] MEDS: Lisinopril 20 MG TAB PO SCH (09:27)
[2021-05-27] MEDS: Aripiprazole 15 MG TAB PO SCH ×2 (09:28→21:22)
[2021-05-27] MEDS: Nitroglycerin 2% Ointment 1 INCH/1 GM Packet TOP SCH ×2 (09:30→21:22)
[2021-05-27] MEDS: Sodium Chloride 0.9% 1,000 ML IV SCH (09:31)
[2021-05-27] MEDS: Morphine 4 MG/ML VIAL SLOW IVP PRN (09:38)
[2021-05-27] MEDS: Promethazine HCl 25 MG in Sodium Chloride 0.9% 50 ML IVPB PRN (13:27)
[2021-05-27] MEDS ORDERED: Pravastatin Sodium 20 MG TAB PO SCH (21:00)
[2021-05-27] MEDS: Atorvastatin Calcium 40 MG TAB PO SCH (21:22)
[2021-05-28 04:32] LABS: #Eosinphils 0.1 thou/uL (0.0-0.7); #Lymphocytes 2.8 thou/uL (1.20-3.40); #Monocytes 0.5 thou/uL (0.11-0.59); #Neutrophils 4.2 thou/uL (1.40-6.50); %Basophils 0.4 % (0.0-1.0); %Eosinophils 1.1 % (0.0-10.0); %Lymphocytes 36.9 % (21.0-51.0); %Monocytes 6.4 % (0.0-10.0); %Neutrophils 55.1 % (42.0-75.0); Hemoglobin 12.6 g/dL (12.0-16.0); Mean Corpuscular HGB CONC 34.8 g/dL (32.0-36.0); Mean Corpuscular Hemoglobin 32.1 pg (27.0-31.0); Mean Corpuscular Volume 92.4 fL (78.0-98.0); Mean Platelet Volume 7.5 fL (7.4-10.4); Platelet Count 225 thou/uL (130-400); RBC Distribution Width 11.4 % (11.5-14.5); Red Blood Cell (RBC) Count 3.93 mill/uL (4.20-5.40); White Blood Cell (WBC) Count 7.6 thou/uL (4.8-10.8)
[2021-05-28 04:51] LABS: Anion Gap 10 mmol/L (10-20); BUN (Urea Nitrogen) 13 mg/dL (9.8-20.1); Calc. Creatinine Clearance 97 mL/min (70-130); Calcium 8.9 mg/dL (7.8-10.44); Carbon Dioxide 25 mmol/L (22-29); Chloride 108 mmol/L (98-107); Glucose 155 mg/dL (70-105); Potassium 3.9 mmol/L (3.5-5.1); Sodium 139 mmol/L (136-145)
[2021-05-28] MEDS: Promethazine HCl 25 MG in Sodium Chloride 0.9% 50 ML IVPB PRN ×2 (07:38→22:36)
[2021-05-28] MEDS: Citalopram 20 MG TAB PO SCH (08:51)
[2021-05-28] MEDS: Aspirin 81 mg Enteric Coated Tablet PO SCH (08:51)
[2021-05-28] MEDS: Lisinopril 20 MG TAB PO SCH (08:52)
[2021-05-28] MEDS: Bupropion 150 MG XL TAB PO SCH (08:52)
[2021-05-28] MEDS: lamoTRIgine 100 MG TAB PO SCH (08:53)
[2021-05-28] MEDS: Gabapentin 400 MG CAP PO SCH ×3 (08:53→21:22)
[2021-05-28] MEDS: Metoprolol Tartrate 50 MG TAB PO SCH ×2 (08:53→21:23)
[2021-05-28] MEDS: Morphine 4 MG/ML VIAL SLOW IVP PRN ×2 (09:09→22:42)
[2021-05-28] MEDS: Aripiprazole 15 MG TAB PO SCH ×2 (09:09→22:36)
[2021-05-28] MEDS: Nitroglycerin 2% Ointment 1 INCH/1 GM Packet TOP SCH ×2 (09:10→21:23)
[2021-05-28] MEDS: Atorvastatin Calcium 40 MG TAB PO SCH (21:22)
[2021-05-29] MEDS ORDERED: Iopamidol 370 76% 100 ML VIAL ONE (09:44)
[2021-05-29] MEDS: Aspirin 81 mg Enteric Coated Tablet PO SCH (09:49)
[2021-05-29] MEDS: Aripiprazole 15 MG TAB PO SCH (09:49)
[2021-05-29] MEDS: Citalopram 20 MG TAB PO SCH (09:50)
[2021-05-29] MEDS: Gabapentin 400 MG CAP PO SCH (09:51)
[2021-05-29] MEDS: Nitroglycerin 2% Ointment 1 INCH/1 GM Packet TOP SCH (09:51)
[2021-05-29] MEDS: lamoTRIgine 100 MG TAB PO SCH (09:51)
[2021-05-29] MEDS: Bupropion 150 MG XL TAB PO SCH (09:51)
[2021-05-29] MEDS: Metoprolol Tartrate 50 MG TAB PO SCH (09:52)
[2021-05-29] MEDS: Lisinopril 20 MG TAB PO SCH (09:52)
[2021-05-29 11:38] VITALS: BP 99/60; TEMP 98.3
[2021-05-29] MEDS ORDERED: HumaLOG 300 UNITS/3 ML VIAL SC PRN (11:44)
== END 2021-05-29 14:55 | disposition home or self-care (01) ==
LOC: 2NO 16:43 → INTOOBSV 16:43
PROVIDERS: ADMIT Internal Medicine; ATTEND Internal Medicine
PROC: 4A023N7 Measurement of Cardiac Sampling and Pressure, Left Heart, Percutaneous Approach (ICD-10-PCS; principal; 2021-05-27)
PROC: B2111ZZ Fluoroscopy of Multiple Coronary Arteries using Low Osmolar Contrast (ICD-10-PCS; 2021-05-27)
DX: R07.89 Other chest pain (principal); R94.39 Abnormal result of other cardiovascular function study; R11.2 Nausea with vomiting, unspecified; R19.7 Diarrhea, unspecified; E11.51 Type 2 diabetes mellitus with diabetic peripheral angiopathy without gangrene; I10 Essential (primary) hypertension; E78.5 Hyperlipidemia, unspecified; K21.9 Gastro-esophageal reflux disease without esophagitis; M17.12 Unilateral primary osteoarthritis, left knee; Z87.891 Personal history of nicotine dependence; Z79.82 Long term (current) use of aspirin; Z79.84 Long term (current) use of oral hypoglycemic drugs; Z79.899 Other long term (current) drug therapy; Z88.1 Allergy status to other antibiotic agents; Z88.5 Allergy status to narcotic agent; Z88.6 Allergy status to analgesic agent; Z88.8 Allergy status to other drugs, medicaments and biological substances; Z96.651 Presence of right artificial knee joint; Z20.822 Contact with and (suspected) exposure to COVID-19
CPT/HCPCS: 70450; 71275; 80048 ×2; 81001; 82962 ×4; 83735; 84484 ×3; 85025 ×2; 85379; 93005; 93458; U0002; 36415; 36416; 80053; 84443; 93010; 96374; 96375; 96376; 99152; G0378; J1815; J2250; J2270; J2550; J7050; Q0162; Q9967

== ENCOUNTER 2022-03-17 01:58 | Inpatient (IN) | payer OTHER ==
[2022-03-17 02:40] LABS: #Basophils 0.1 thou/uL (0.0-0.2); #Eosinphils 0.1 thou/uL (0.0-0.7); #Lymphocytes 2.9 thou/uL (1.20-3.40); #Monocytes 0.6 thou/uL (0.11-0.59); #Neutrophils 5.1 thou/uL (1.40-6.50); %Basophils 0.7 % (0.0-1.0); %Eosinophils 0.7 % (0.0-10.0); %Lymphocytes 33.5 % (21.0-51.0); %Monocytes 6.6 % (0.0-10.0); %Neutrophils 58.5 % (42.0-75.0); Hemoglobin 14.6 g/dL (12.0-16.0); Mean Corpuscular HGB CONC 34.1 g/dL (32.0-36.0); Mean Corpuscular Hemoglobin 31.2 pg (27.0-31.0); Mean Corpuscular Volume 91.7 fl (78.0-98.0); Mean Platelet Volume 8.1 fL (7.4-10.4); Platelet Count 261 10x3/uL (130-400); RBC Distribution Width 12.1 % (11.5-14.5); Red Blood Cell (RBC) Count 4.66 mill/uL (4.20-5.40); White Blood Cell (WBC) Count 8.7 10x3/uL (4.8-10.8)
[2022-03-17 02:47] LABS: Bacteria/HPF None Seen HPF (None Seen); Bilirubin Negative (Negative); Blood, Urine Negative (Negative); Clarity Clear (Clear); Glucose, Urine (Dipstick) 300 mg/dL (Negative); Ketone, Urine Trace mg/dL (Negative); Leukocyte Negative Leu/uL (Negative); Mucous/LPF 4+ LPF (<2+); Nitrite Negative (Negative); Protein, Urine (Dipstick) 30 mg/dL (Neg-Trace); RBC/HPF 0-3 HPF (0-3); Specific Gravity, Urine 1.033 (1.002-1.036); Squamous Epithelial 0-3 HPF (0-3); Urobilinogen Normal mg/dL (Less than 2); WBC/HPF 0-3 HPF (0-3); pH, Urine 5.5 (5.0-9.0)
[2022-03-17] MEDS ORDERED: Succinylcholine 200 MG/10 ml SYRINGE FS ONE (02:48)
[2022-03-17 02:51] LABS: Amphetamine Not Detected (NotDetected); Barbiturates Screen Not Detected (NotDetected); Benzodiazepine Screen Detected (NotDetected); Cocaine Metabolite Screen Not Detected (NotDetected); Methadone Not Detected (NotDetected); Methamphetamine Not Detected (NotDetected); Opiate Screen Not Detected (NotDetected); Oxycodone Screen Not Detected (NotDetected); Phencyclidine (PCP) Not Detected (NotDetected); THC/Cannabinoid Screen Not Detected (NotDetected); Tricyclic Screen Detected (NotDetected)
[2022-03-17] MEDS ORDERED: Fentanyl CADD 100 ML IV SCH ×2 (03:00→04:30)
[2022-03-17] MEDS ORDERED: Propofol 1,000 MG/100 ML VIAL IV ONE (03:01)
[2022-03-17 03:03] LABS: ALT (SGPT) 24 U/L (8-55); AST (SGOT) 18 U/L (5-34); Acetaminophen Less than 10.0 mcg/mL (10.0-30.0); Albumin 4.2 g/dL (3.5-5.0); Alcohol Less than 10 mg/dL (Less than 10); Alkaline Phosphatase 90 U/L (40-110); Anion Gap 13 mmol/L (10-20); BUN (Urea Nitrogen) 18 mg/dL (9.8-20.1); Bilirubin, Total 0.5 mg/dL (0.2-1.2); CK (CPK) 53 U/L (29-168); Calc. Creatinine Clearance 0 mL/min (70-130); Calcium 10.2 mg/dL (7.8-10.44); Carbon Dioxide 23 mmol/L (22-29); Chloride 108 mmol/L (98-107); Estimated GFR 54; Globulin 3.4 g/dL (2.4-3.5); Glucose 231 mg/dL (70-105); Magnesium 1.5 mg/dL (1.6-2.6); Potassium 3.7 mmol/L (3.5-5.1); Protein, Total 7.6 g/dL (6.0-8.3); Salicylate Less than 8.0 mg/dL (15.0-30.0); Sodium 140 mmol/L (136-145)
[2022-03-17 03:19] LABS: Actual Bicarbonate (HCO3a) 23.4 mEq/L (22-28); Analyzer IN Cardio ER; Base Excess (BEa) 0.5 mEq/L (-2.0 to +3.0); CO2 Tension 32.9 mmHg (35.0-45.0); Calcium, Ionized (arterial) 1.26 mmol/L (1.12-1.30); Carboxyhemoglobin (COHb) 0.1 gm% (0.0-3.0); Hemoglobin (Hb) 14.9 g/dL (12.0-16.0); O2 Tension (PaO2), arterial 139.8 mmHg (80.0-100.0); Potassium - ABG Lab 4.18 mmol/L (3.70-5.30); pH, Arterial 7.47 (7.35-7.45)
[2022-03-17 03:24] LABS: Puncture Site RRA
[2022-03-17 03:25] LABS: ALV-art Gradient 104.275 mmHg (0-20)
[2022-03-17] MEDS ORDERED: Ondansetron PF 4 MG/2 ML Vial IVP PRN (04:20)
[2022-03-17] MEDS ORDERED: Electrolyte Replacement Protocol 1 EACH IVPB PRN (04:21)
[2022-03-17] MEDS ORDERED: Dextrose 50% Abboject 50 ML SYRINGE SLOW IVP PRN (04:24)
[2022-03-17] MEDS ORDERED: HumaLOG 300 UNITS/3 ML VIAL SC PRN ×2 (04:24)
[2022-03-17] MEDS ORDERED: Dextrose 5% in Water 1,000 ML IV PRN (04:24)
[2022-03-17] MEDS ORDERED: Midazolam HCl 2 mg/2 ml Vial SLOW IVP PRN (04:27)
[2022-03-17 04:30] LABS: SARS-CoV-2 NAA Rapid Test Not Detected (NotDetected)
[2022-03-17] MEDS ORDERED: Morphine 4 MG/ML VIAL SLOW IVP PRN (04:30)
[2022-03-17] MEDS ORDERED: Propofol 1,000 MG/100 ML VIAL IV PRN (04:30)
[2022-03-17] MEDS ORDERED: Ventilator Sedation Protocol 1 EACH FS SCH (04:30)
[2022-03-17] MEDS ORDERED: Propofol BOLUS 1,000 MG/100 ML VIAL IV PRN (04:30)
[2022-03-17] MEDS ORDERED: Fentanyl BOLUS 250 ML IVPB PRN (04:30)
[2022-03-17] MEDS ORDERED: DISCONTINUE PREVIOUS NARCOTIC PAIN MEDICATIONS AND BENZODIAZEPINES FS SCH (04:30)
[2022-03-17] MEDS ORDERED: Magnesium 2 GM/50 ML(in water) 2 GM in Premix Bag 1 BAG IVPB SCH ×2 (05:00→09:45)
[2022-03-17] MEDS: Sodium Chloride 0.9% 1,000 ML IV SCH ×2 (06:27→10:53)
[2022-03-17] MEDS ORDERED: Famotidine 40 MG/5 ML Oral Suspension PER TUBE SCH (09:00)
[2022-03-17 09:04] LABS: Actual Bicarbonate (HCO3a) 23.1 mEq/L (22-28); Base Excess (BEa) -1.9 mEq/L (-2.0 to +3.0); CO2 Tension 40.1 mmHg (35.0-45.0); Calcium, Ionized (arterial) 1.27 mmol/L (1.12-1.30); Carboxyhemoglobin (COHb) 0.2 gm% (0.0-3.0); Hemoglobin (Hb) 15.1 g/dL (12.0-16.0); O2 Tension (PaO2), arterial 144.6 mmHg (80.0-100.0); Potassium - ABG Lab 3.59 mmol/L (3.70-5.30); pH, Arterial 7.38 (7.35-7.45)
[2022-03-17 09:10] LABS: ALV-art Gradient 90.475 mmHg (0-20); Puncture Site RRA
[2022-03-17] MEDS: Heparin 5,000 UNITS/ML VIAL SC SCH ×3 (10:07→20:29)
[2022-03-17] MEDS ORDERED: FLU VACC QS2022-23(6MOS UP)/PF 60 MCG/0.5 ML SYRINGE IM ONE (11:15)
[2022-03-17] MEDS ORDERED: Sodium Chloride 0.9% 500 ML IV SCH (12:30)
[2022-03-17] MEDS: Lansoprazole 15 MG/5 ML (BATCHED)UDCUP PER TUBE SCH (13:40)
[2022-03-17 15:18] LABS: Anion Gap 12 mmol/L (10-20); BUN (Urea Nitrogen) 16 mg/dL (9.8-20.1); Calc. Creatinine Clearance 86 mL/min (70-130); Calcium 9.2 mg/dL (7.8-10.44); Carbon Dioxide 22 mmol/L (22-29); Chloride 111 mmol/L (98-107); Estimated GFR 78; Glucose 163 mg/dL (70-105); Magnesium 2.5 mg/dL (1.6-2.6); Phosphorus 2.7 mg/dL (2.3-4.7); Potassium 3.9 mmol/L (3.5-5.1); Sodium 141 mmol/L (136-145)
[2022-03-18 04:04] LABS: #Basophils 0.1 thou/uL (0.0-0.2); #Lymphocytes 2.6 thou/uL (1.20-3.40); #Monocytes 0.9 thou/uL (0.11-0.59); #Neutrophils 13.7 thou/uL (1.40-6.50); %Basophils 0.3 % (0.0-1.0); %Eosinophils 0.2 % (0.0-10.0); %Lymphocytes 15.1 % (21.0-51.0); %Monocytes 5.5 % (0.0-10.0); %Neutrophils 78.9 % (42.0-75.0); Hemoglobin 12.7 g/dL (12.0-16.0); Mean Corpuscular Hemoglobin 31.3 pg (27.0-31.0); Mean Corpuscular Volume 91.9 fl (78.0-98.0); Mean Platelet Volume 8.1 fL (7.4-10.4); Platelet Count 228 10x3/uL (130-400); RBC Distribution Width 12.2 % (11.5-14.5); Red Blood Cell (RBC) Count 4.05 mill/uL (4.20-5.40); White Blood Cell (WBC) Count 17.3 10x3/uL (4.8-10.8)
[2022-03-18 04:23] LABS: Phosphorus 2.8 mg/dL (2.3-4.7)
[2022-03-18 04:27] LABS: ALT (SGPT) 17 U/L (8-55); AST (SGOT) 16 U/L (5-34); Albumin 3.5 g/dL (3.5-5.0); Alkaline Phosphatase 74 U/L (40-110); Anion Gap 13 mmol/L (10-20); BUN (Urea Nitrogen) 16 mg/dL (9.8-20.1); Bilirubin, Total 1.1 mg/dL (0.2-1.2); Calc. Creatinine Clearance 87 mL/min (70-130); Calcium 8.6 mg/dL (7.8-10.44); Carbon Dioxide 21 mmol/L (22-29); Chloride 111 mmol/L (98-107); Estimated GFR 79; Globulin 2.9 g/dL (2.4-3.5); Glucose 184 mg/dL (70-105); Magnesium 1.9 mg/dL (1.6-2.6); Potassium 3.6 mmol/L (3.5-5.1); Protein, Total 6.4 g/dL (6.0-8.3); Sodium 141 mmol/L (136-145)
[2022-03-18] MEDS ORDERED: Magnesium 2 GM/50 ML(in water) 2 GM in Premix Bag 1 BAG IVPB SCH (08:00)
[2022-03-18] MEDS: Heparin 5,000 UNITS/ML VIAL SC SCH ×3 (08:07→20:34)
[2022-03-18] MEDS: Lansoprazole 15 MG/5 ML (BATCHED)UDCUP PER TUBE SCH (08:24)
[2022-03-18] MEDS ORDERED: Ketorolac Tromethamine 30 MG/ML VIAL IVP SCH (22:45)
[2022-03-19] MEDS ORDERED: Ketorolac Tromethamine 30 MG/ML VIAL IVP SCH (05:30)
[2022-03-19 07:23] LABS: #Eosinphils 0.3 thou/uL (0.0-0.7); #Lymphocytes 2.2 thou/uL (1.20-3.40); #Monocytes 0.5 thou/uL (0.11-0.59); #Neutrophils 7.7 thou/uL (1.40-6.50); %Basophils 0.4 % (0.0-1.0); %Lymphocytes 20.4 % (21.0-51.0); %Monocytes 4.8 % (0.0-10.0); %Neutrophils 71.5 % (42.0-75.0); Hemoglobin 12.4 g/dL (12.0-16.0); Mean Corpuscular HGB CONC 33.6 g/dL (32.0-36.0); Mean Corpuscular Volume 92.2 fl (78.0-98.0); Mean Platelet Volume 9.9 fL (7.4-10.4); Platelet Count 142 10x3/uL (130-400); RBC Distribution Width 11.9 % (11.5-14.5); Red Blood Cell (RBC) Count 4.01 mill/uL (4.20-5.40); White Blood Cell (WBC) Count 10.8 10x3/uL (4.8-10.8)
[2022-03-19 07:43] LABS: Phosphorus 2.2 mg/dL (2.3-4.7)
[2022-03-19 07:50] LABS: ALT (SGPT) 18 U/L (8-55); AST (SGOT) 29 U/L (5-34); Albumin 3.3 g/dL (3.5-5.0); Alkaline Phosphatase 73 U/L (40-110); Anion Gap 14 mmol/L (10-20); BUN (Urea Nitrogen) 11 mg/dL (9.8-20.1); Calc. Creatinine Clearance 106 mL/min (70-130); Calcium 8.7 mg/dL (7.8-10.44); Carbon Dioxide 17 mmol/L (22-29); Chloride 112 mmol/L (98-107); Estimated GFR 96; Globulin 3.5 g/dL (2.4-3.5); Glucose 114 mg/dL (70-105); Magnesium 1.9 mg/dL (1.6-2.6); Protein, Total 6.8 g/dL (6.0-8.3); Sodium 139 mmol/L (136-145)
[2022-03-19] MEDS ORDERED: Fioricet 325/50/40 mg Tablet PO SCH (09:00)
[2022-03-19] MEDS: Heparin 5,000 UNITS/ML VIAL SC SCH ×2 (09:08→16:48)
[2022-03-19] MEDS ORDERED: Magnesium 2 GM/50 ML(in water) 2 GM in Premix Bag 1 BAG IVPB SCH (10:00)
[2022-03-19] MEDS ORDERED: Cyclobenzaprine 10 MG TAB PO PRN (11:56)
[2022-03-19] MEDS ORDERED: Pregabalin 75 MG CAP PO SCH (12:00)
[2022-03-19] MEDS: K-Phos Neutral 250 MG TAB PO SCH ×2 (12:54→19:03)
[2022-03-19] MEDS ORDERED: Gabapentin 300 MG CAP PO SCH (15:00)
[2022-03-19] MEDS: Lansoprazole 15 MG/5 ML (BATCHED)UDCUP PER TUBE SCH (16:26)
[2022-03-19] MEDS ORDERED: ALPRAZolam 0.25 MG TAB PO PRN (16:29)
[2022-03-19] MEDS ORDERED: Loperamide HCl 2 MG CAP PO PRN (16:41)
[2022-03-19] MEDS ORDERED: Citalopram 10 MG TAB PO SCH (16:45)
[2022-03-19] MEDS: ALPRAZolam 0.25 MG TAB PO SCH (20:20)
[2022-03-19] MEDS: Pregabalin 75 MG CAP PO SCH (20:20)
[2022-03-19] MEDS: Saccharomyces boulardii 250 MG CAP PO SCH (20:21)
[2022-03-19] MEDS: Fioricet 325/50/40 mg Tablet PO PRN (21:00)
[2022-03-20 05:49] VITALS: BMI 28.3
[2022-03-20 08:33] LABS: Anion Gap 11 mmol/L (10-20); BUN (Urea Nitrogen) 9 mg/dL (9.8-20.1); Calc. Creatinine Clearance 106 mL/min (70-130); Carbon Dioxide 25 mmol/L (22-29); Chloride 110 mmol/L (98-107); Estimated GFR 96; Glucose 124 mg/dL (70-105); Phosphorus 3.3 mg/dL (2.3-4.7); Potassium 3.3 mmol/L (3.5-5.1); Sodium 143 mmol/L (136-145)
[2022-03-20] MEDS: ALPRAZolam 0.25 MG TAB PO SCH (08:44)
[2022-03-20] MEDS: Pregabalin 75 MG CAP PO SCH ×2 (08:44→20:23)
[2022-03-20] MEDS: Citalopram 10 MG TAB PO SCH (08:45)
[2022-03-20] MEDS ORDERED: Acetaminophen 325 MG TAB ONE (09:16)
[2022-03-20] MEDS ORDERED: Acetaminophen 500 MG TAB ONE (09:17)
[2022-03-20] MEDS ORDERED: Potassium Chloride 20 MEQ TAB PO SCH ×2 (11:00→17:00)
[2022-03-20] MEDS: K-Phos Neutral 250 MG TAB PO SCH (11:24)
[2022-03-20] MEDS ORDERED: Ketorolac Tromethamine 30 MG/ML VIAL IVP SCH (17:15)
[2022-03-20] MEDS ORDERED: Gabapentin 100 MG CAP PO SCH (17:15)
[2022-03-20] MEDS: ALPRAZolam 0.5 MG TAB PO SCH (20:23)
[2022-03-20] MEDS: Saccharomyces boulardii 250 MG CAP PO SCH (20:24)
[2022-03-20] MEDS: Heparin 5,000 UNITS/ML VIAL SC SCH (20:25)
[2022-03-20] MEDS: Fioricet 325/50/40 mg Tablet PO PRN (22:36)
[2022-03-21] MEDS ORDERED: Benzonatate 100 MG CAP PO PRN (03:50)
[2022-03-21] MEDS ORDERED: Ibuprofen 800 MG TAB PO SCH (04:00)
[2022-03-21 08:10] VITALS: BP 135/80; TEMP 97.6
[2022-03-21] MEDS ORDERED: Gabapentin 100 MG CAP PO SCH (09:00)
[2022-03-21] MEDS: ALPRAZolam 0.5 MG TAB PO SCH (09:27)
[2022-03-21] MEDS: Pregabalin 75 MG CAP PO SCH (09:27)
[2022-03-21] MEDS: Citalopram 10 MG TAB PO SCH (09:27)
[2022-03-21] MEDS: Heparin 5,000 UNITS/ML VIAL SC SCH (09:28)
== END 2022-03-21 11:30 | DRG 917 ==
LOC: ERS 01:58 → CCU 05:13 → T4-B 03-18 11:43
PROVIDERS: ADMIT Internal Medicine; ATTEND Internal Medicine
PROC: 5A1935Z Respiratory Ventilation, Less than 24 Consecutive Hours (ICD-10-PCS; principal; 2022-03-17)
PROC: 0BH17EZ Insertion of Endotracheal Airway into Trachea, Via Natural or Artificial Opening (ICD-10-PCS; 2022-03-17)
PROC: 5A09357 Assistance with Respiratory Ventilation, Less than 24 Consecutive Hours, Continuous Positive Airway Pressure (ICD-10-PCS; 2022-03-17)
DX: T42.4X2A Poisoning by benzodiazepines, intentional self-harm, initial encounter (principal); G92.8 Other toxic encephalopathy; J96.01 Acute respiratory failure with hypoxia; N17.9 Acute kidney failure, unspecified; Z20.822 Contact with and (suspected) exposure to COVID-19; I10 Essential (primary) hypertension; E11.51 Type 2 diabetes mellitus with diabetic peripheral angiopathy without gangrene; K21.9 Gastro-esophageal reflux disease without esophagitis; F41.9 Anxiety disorder, unspecified; F31.9 Bipolar disorder, unspecified; R51.9 Headache, unspecified; N18.2 Chronic kidney disease, stage 2 (mild); I12.9 Hypertensive chronic kidney disease with stage 1 through stage 4 chronic kidney disease, or unspecified chronic kidney disease; E11.22 Type 2 diabetes mellitus with diabetic chronic kidney disease; E87.6 Hypokalemia; E83.39 Other disorders of phosphorus metabolism; E83.42 Hypomagnesemia; E86.0 Dehydration; D72.829 Elevated white blood cell count, unspecified; Z96.642 Presence of left artificial hip joint; Z96.651 Presence of right artificial knee joint; R33.8 Other retention of urine; Z88.6 Allergy status to analgesic agent; Z78.1 Physical restraint status; Z91.51 Personal history of suicidal behavior; Z88.1 Allergy status to other antibiotic agents; Z88.8 Allergy status to other drugs, medicaments and biological substances; Z79.899 Other long term (current) drug therapy; Z79.51 Long term (current) use of inhaled steroids; Z79.84 Long term (current) use of oral hypoglycemic drugs; Z90.49 Acquired absence of other specified parts of digestive tract; Z98.890 Other specified postprocedural states
CPT/HCPCS: 31500; 36415; 36416; 36600; 51701; 70450; 71045; 71046; 80048; 80053; 80306; 80307; 81003; 81015; 82550; 82805; 83735; 84100; 84443; 85025; 93005; 94002; 96365; 96366; J1644; J1815; J1885; J2250; J2704; J3010; J3475; J3490; J7030; J7050; U0002

== ENCOUNTER 2022-05-04 16:10 | Emergency (ER) | payer OTHER ==
[2022-05-04 16:45] LABS: #Lymphocytes 1.5 thou/uL (1.20-3.40); #Monocytes 0.5 thou/uL (0.11-0.59); %Basophils 0.2 % (0.0-1.0); %Eosinophils 0.5 % (0.0-10.0); %Lymphocytes 18.7 % (21.0-51.0); %Monocytes 6.6 % (0.0-10.0); Hemoglobin 13.7 g/dL (12.0-16.0); Mean Corpuscular Hemoglobin 31.6 pg (27.0-31.0); Mean Corpuscular Volume 90.3 fl (78.0-98.0); Mean Platelet Volume 7.9 fL (7.4-10.4); Platelet Count 243 10x3/uL (130-400); RBC Distribution Width 12.6 % (11.5-14.5); Red Blood Cell (RBC) Count 4.33 mill/uL (4.20-5.40); White Blood Cell (WBC) Count 8.1 10x3/uL (4.8-10.8)
[2022-05-04 16:56] LABS: Bacteria/HPF None Seen HPF (None Seen); Bilirubin Negative (Negative); Blood, Urine Negative (Negative); Clarity Clear (Clear); Glucose, Urine (Dipstick) 70 mg/dL (Negative); Ketone, Urine Negative (Negative); Leukocyte Negative Leu/uL (Negative); Nitrite Negative (Negative); Protein, Urine (Dipstick) 70 mg/dL (Neg-Trace); RBC/HPF 0-3 HPF (0-3); Specific Gravity, Urine 1.027 (1.002-1.036); Squamous Epithelial 0-3 HPF (0-3); WBC/HPF 0-3 HPF (0-3)
[2022-05-04 17:03] LABS: Amphetamine Not Detected (NotDetected); Barbiturates Screen Not Detected (NotDetected); Benzodiazepine Screen Detected (NotDetected); Cocaine Metabolite Screen Not Detected (NotDetected); Methadone Not Detected (NotDetected); Methamphetamine Not Detected (NotDetected); Opiate Screen Not Detected (NotDetected); Oxycodone Screen Not Detected (NotDetected); Phencyclidine (PCP) Not Detected (NotDetected); THC/Cannabinoid Screen Not Detected (NotDetected); Tricyclic Screen Not Detected (NotDetected)
[2022-05-04 17:05] LABS: Acetaminophen Less than 10.0 mcg/mL (10.0-30.0); Alcohol Less than 10 mg/dL (Less than 10); Salicylate Less than 8.0 mg/dL (15.0-30.0)
[2022-05-04 17:07] LABS: ALT (SGPT) 18 U/L (8-55); AST (SGOT) 15 U/L (5-34); Albumin 3.9 g/dL (3.5-5.0); Alkaline Phosphatase 78 U/L (40-110); Anion Gap 11 mmol/L (10-20); BUN (Urea Nitrogen) 11 mg/dL (9.8-20.1); Bilirubin, Total 0.5 mg/dL (0.2-1.2); CK (CPK) 50 U/L (29-168); Calc. Creatinine Clearance 0 mL/min (70-130); Calcium 9.2 mg/dL (7.8-10.44); Carbon Dioxide 26 mmol/L (22-29); Chloride 109 mmol/L (98-107); Estimated GFR 84; Globulin 2.8 g/dL (2.4-3.5); Glucose 174 mg/dL (70-105); Lipase 9 U/L (8-78); Potassium 3.5 mmol/L (3.5-5.1); Protein, Total 6.7 g/dL (6.0-8.3); Sodium 142 mmol/L (136-145)
[2022-05-05 11:50] LABS: SARS-CoV-2 NAA Rapid Test Not Detected (NotDetected)
== END 2022-05-05 14:10 ==
LOC: ERS 16:10
DX: T42.4X2A Poisoning by benzodiazepines, intentional self-harm, initial encounter (principal); I10 Essential (primary) hypertension; K21.9 Gastro-esophageal reflux disease without esophagitis; E78.5 Hyperlipidemia, unspecified; F17.210 Nicotine dependence, cigarettes, uncomplicated; Z79.82 Long term (current) use of aspirin; Z20.822 Contact with and (suspected) exposure to COVID-19
CPT/HCPCS: 51701; 70450; 71045; 80053; 80306; 80307; 82550; 83690; 83880; 84484; 85025; 93005; 99285; U0002; 36415; 81003; 81015

== ENCOUNTER 2023-04-17 15:50 | Emergency (ER) | payer OTHER ==
[2023-04-17 16:55] LABS: #Monocytes 0.6 thou/uL (0.11-0.59); #Neutrophils 4.5 thou/uL (1.40-6.50); %Basophils 0.6 % (0.0-1.0); %Eosinophils 0.4 % (0.0-10.0); %Lymphocytes 26.5 % (21.0-51.0); %Monocytes 8.5 % (0.0-10.0); %Neutrophils 63.6 % (42.0-75.0); Hematocrit 42.3 % (36.0-47.0); Hemoglobin 14.7 g/dL (12.0-16.0); Mean Corpuscular HGB CONC 34.8 g/dL (32.0-36.0); Mean Corpuscular Hemoglobin 30.9 pg (27.0-31.0); Mean Corpuscular Volume 89.1 fl (78.0-98.0); Mean Platelet Volume 10.5 fL (7.4-10.4); Platelet Count 233 10x3/uL (130-400); RBC Distribution Width 12.4 % (11.5-14.5); Red Blood Cell (RBC) Count 4.75 mill/uL (4.20-5.40)
[2023-04-17 17:21] LABS: Acetaminophen Less than 10 mcg/mL (10.0-30.0); Alcohol Less than 10.0 mg/dL (Less than 10); Salicylate Less than 8.0 mg/dL (15.0-30.0)
[2023-04-17 17:22] LABS: ALT (SGPT) 23 U/L (8-55); AST (SGOT) 19 U/L (5-34); Albumin 4.1 g/dL (3.5-5.0); Alkaline Phosphatase 80 U/L (40-110); Anion Gap 12 mmol/L (10-20); BUN (Urea Nitrogen) 12 mg/dL (9.8-20.1); Bilirubin, Total 0.4 mg/dL (0.2-1.2); CK (CPK) 137 U/L (29-168); Calc. Creatinine Clearance 0 mL/min (70-130); Calcium 9.2 mg/dL (7.8-10.44); Carbon Dioxide 21 mmol/L (22-29); Chloride 107 mmol/L (98-107); Estimated GFR 64; Globulin 3.1 g/dL (2.4-3.5); Glucose 271 mg/dL (70-105); Lipase 21 U/L (8-78); Potassium 3.8 mmol/L (3.5-5.1); Protein, Total 7.2 g/dL (6.0-8.3); Sodium 136 mmol/L (136-145)
[2023-04-17 17:25] LABS: Troponin I Less than 0.010 ng/mL (< 0.028)
[2023-04-17 17:56] LABS: Bacteria/HPF None Seen HPF (None Seen); Bilirubin Negative (Negative); Blood, Urine Negative (Negative); CAUTI Indications for Culture Alt mental st,lethar; Clarity Clear (Clear); Glucose, Urine (Dipstick) Greater than 1000 mg/dL (Negative); Ketone, Urine Negative (Negative); Leukocyte Negative Leu/uL (Negative); Nitrite 2+ (Negative); Protein, Urine (Dipstick) 20 mg/dL (Neg-Trace); RBC/HPF 0-3 HPF (0-3); Specific Gravity, Urine 1.021 (1.002-1.036); Squamous Epithelial 0-3 HPF (0-3); Urobilinogen Normal mg/dL (Less than 2); WBC/HPF 0-3 HPF (0-3); pH, Urine 5.5 (5.0-9.0)
[2023-04-17 17:57] LABS: Urine Culture Reflex No No
[2023-04-17 18:08] LABS: Amphetamine Not Detected (NotDetected); Barbiturates Screen Not Detected (NotDetected); Benzodiazepine Screen Not Detected (NotDetected); Cocaine Metabolite Screen Not Detected (NotDetected); Methadone Not Detected (NotDetected); Methamphetamine Not Detected (NotDetected); Opiate Screen Not Detected (NotDetected); Oxycodone Screen Not Detected (NotDetected); Phencyclidine (PCP) Not Detected (NotDetected); THC/Cannabinoid Screen Not Detected (NotDetected); Tricyclic Screen Not Detected (NotDetected)
[2023-04-17] MEDS ORDERED: Nitrofurantoin Macrocrystal 50 MG CAP ONE (20:51)
== END 2023-04-18 10:24 ==
LOC: ERS 15:50
DX: T39.312A Poisoning by propionic acid derivatives, intentional self-harm, initial encounter (principal); T45.0X2A Poisoning by antiallergic and antiemetic drugs, intentional self-harm, initial encounter; N39.0 Urinary tract infection, site not specified; E11.9 Type 2 diabetes mellitus without complications; I10 Essential (primary) hypertension; E78.5 Hyperlipidemia, unspecified; K21.9 Gastro-esophageal reflux disease without esophagitis; Z87.891 Personal history of nicotine dependence
CPT/HCPCS: 36415; 51701; 71045; 80053; 80306; 80307; 81001; 82140; 82550; 83690; 83880; 84443; 84484; 85025; 87086; 93005

== ENCOUNTER 2023-10-24 02:10 | Emergency (ER) | payer OTHER ==
[2023-10-24 03:20] LABS: Bilirubin Negative (Negative); Blood, Urine Negative (Negative); CAUTI Indications for Culture Alt mental st,lethar; Clarity Clear (Clear); Glucose, Urine (Dipstick) Normal (Negative); Ketone, Urine Negative (Negative); Leukocyte 25 Leu/uL (Negative); Nitrite 2+ (Negative); Protein, Urine (Dipstick) 10 mg/dL (Neg-Trace); RBC/HPF 0-3 HPF (0-3); Specific Gravity, Urine 1.025 (1.002-1.036); Squamous Epithelial 0-3 HPF (0-3); Urobilinogen Normal mg/dL (Less than 2); WBC/HPF 0-3 HPF (0-3); pH, Urine 5.5 (5.0-9.0)
[2023-10-24 03:37] LABS: Bacteria/HPF 1+ HPF (None Seen); Urine Culture Reflex No No
[2023-10-24 03:50] LABS: Amphetamine Not Detected (NotDetected); Barbiturates Screen Not Detected (NotDetected); Benzodiazepine Screen Not Detected (NotDetected); Cocaine Metabolite Screen Not Detected (NotDetected); Methadone Not Detected (NotDetected); Methamphetamine Not Detected (NotDetected); Opiate Screen Not Detected (NotDetected); Oxycodone Screen Not Detected (NotDetected); Phencyclidine (PCP) Not Detected (NotDetected); THC/Cannabinoid Screen Not Detected (NotDetected); Tricyclic Screen Not Detected (NotDetected)
[2023-10-24 04:29] LABS: #Basophils 0.06 10x3/uL (0.0-0.2); %Basophils 0.7 % (0.0-1.0); %Lymphocytes 29.8 % (21.0-51.0); %Monocytes 6.9 % (0.0-10.0); %Neutrophils 61.2 % (42.0-75.0); Hematocrit 35.9 % (36.0-47.0); Hemoglobin 12.3 g/dL (12.0-16.0); Mean Corpuscular HGB CONC 34.3 g/dL (32.0-36.0); Mean Corpuscular Hemoglobin 30.6 pg (27.0-31.0); Mean Corpuscular Volume 89.3 fL (78.0-98.0); Mean Platelet Volume 11.4 fL (7.4-10.4); Platelet Count 202 10x3/uL (130-400); RBC Distribution Width 12.8 % (11.5-14.5); Red Blood Cell (RBC) Count 4.02 mill/uL (4.20-5.40)
[2023-10-24 04:43] LABS: Acetaminophen Less than 10 mcg/mL (10.0-30.0); Alcohol Less than 10.0 mg/dL (Less than 10); Salicylate Less than 8.0 mg/dL (15.0-30.0)
[2023-10-24 04:54] LABS: ALT (SGPT) 17 U/L (8-55); AST (SGOT) 17 U/L (5-34); Albumin 3.7 g/dL (3.4-4.8); Alkaline Phosphatase 64 U/L (40-110); Anion Gap 17 mmol/L (10-20); BUN (Urea Nitrogen) 24 mg/dL (9.8-20.1); Bilirubin, Total 0.5 mg/dL (0.2-1.2); Calc. Creatinine Clearance 0 mL/min (70-130); Calcium 9.6 mg/dL (7.8-10.44); Carbon Dioxide 16 mmol/L (23-31); Chloride 112 mmol/L (98-107); Estimated GFR 59; Glucose 98 mg/dL (80-115); Potassium 3.6 mmol/L (3.5-5.1); Protein, Total 6.7 g/dL (5.8-8.1); Sodium 141 mmol/L (136-145)
[2023-10-24 04:55] LABS: Troponin I 0.015 ng/mL (< 0.028)
[2023-10-24] MEDS ORDERED: Acetaminophen 500 MG TAB ONE (05:25)
[2023-10-24] MEDS ORDERED: Nitrofurantoin Monohyd/M-Cryst 100 MG CAP ONE (05:26)
== END 2023-10-24 07:41 | disposition home or self-care (01) ==
LOC: ERS 02:10
DX: N39.0 Urinary tract infection, site not specified (principal); R55 Syncope and collapse; E11.9 Type 2 diabetes mellitus without complications; I10 Essential (primary) hypertension; K21.9 Gastro-esophageal reflux disease without esophagitis; Z79.899 Other long term (current) drug therapy; Z79.84 Long term (current) use of oral hypoglycemic drugs; Z79.82 Long term (current) use of aspirin
CPT/HCPCS: 12011; 36415; 51701; 70450; 72125; 72170; 80053; 80306; 80307; 81001; 84484; 85025; 93005